=== PATIENT | male | born 1980 | race African-American/Black ===

== ENCOUNTER 2017-05-08 17:53 | Emergency (ER) | payer OTHER ==
[~2017-05-08] VITALS: Ht 185.4 cm; Wt 113.4 kg
[2017-05-08 21:32] VITALS: BP 151/101
== END 2017-05-08 22:14 | disposition home or self-care (01) ==
LOC: ER 18:03
DX: M79.604 Pain in right leg (principal); R60.9 Edema, unspecified; M79.89 Other specified soft tissue disorders
CPT/HCPCS: 93971